=== PATIENT | male | born 1965 ===

== ENCOUNTER → 2023-06-09 06:39 | Day surgery (SDC) | payer OTHER, SELFPAY | LOC: GI 06:39 | PROVIDERS: ATTENDING PHYSICIAN Internal Medicine Gastroenterology | DX: Z12.11 Encounter for screening for malignant neoplasm of colon (principal); Z86.010 Personal history of colon polyps; K57.30 Diverticulosis of large intestine without perforation or abscess without bleeding; K64.8 Other hemorrhoids; K63.5 Polyp of colon | CPT/HCPCS: 45385; 88305 ==

== ENCOUNTER → 2025-02-26 08:29 | Outpatient (REF) | payer OTHER, SELFPAY | LOC: DHSLP 08:29 | PROVIDERS: ATTENDING PHYSICIAN Internal Medicine | DX: G47.30 Sleep apnea, unspecified (principal); R06.83 Snoring | CPT/HCPCS: 95800 ==